=== PATIENT | male | born 1955 | race Caucasian/White ===

== ENCOUNTER 2021-06-24 00:44 | Inpatient (IN) | payer BC ==
[2021-06-24 01:33] LABS: Absolute Lymphocytes (CBC) 1.8 K/uL (0.7-4.9); Basophils % 0.9 % (0-1.3); Hematocrit 44.3 % (39.6-49.0); Lymphocytes % 40.1 % (15.3-44.8); MPV 7.8 fL (7.6-11.3); RBC Red Blood Cell Count 4.75 M/uL (4.33-5.43)
[2021-06-24 01:35] LABS: Protime INR 1.01
[2021-06-24] MEDS ORDERED: HYDRALAZINE HCL 20 MG/ML VIAL ONE (01:48)
--- NOTE | 2021-06-24 01:51 | ER ---
Nurse's Notes [facility] Name: Mahesh Saenz Age: 66 yrs Sex: Male : 1955 Arrival Date: 06/24/2021 Time: 00:49 Bed 6 Private MD: Diagnosis: NSTEMI Presentation: 06/24 00:56 Chief complaint: Patient states: chest pain that started at 7 pm, BP 202/127 at home, em denies N/V or shortness of breath, had a stent placed 20 years ago. Coronavirus screen: Vaccine status: Patient reports receiving the 2nd dose of the covid vaccine. Ebola Screen: Patient negative for fever greater than or equal to 101.5 degrees Fahrenheit, and additional compatible Ebola Virus Disease symptoms Patient denies exposure to infectious person. Patient denies travel to an Ebola-affected area in the 21 days before illness onset. No symptoms or risks identified at this time. Initial Sepsis Screen: Does the patient meet any 2 criteria? No. Patient's initial sepsis screen is negative. Does the patient have a suspected source of infection? No. Patient's initial sepsis screen is negative. Risk Assessment: Do you want to hurt yourself or someone else? Patient reports no desire to harm self or others. Onset of symptoms was June 24, 2021. 00:56 Method Of Arrival: Ambulatory em 00:56 Acuity: RANDALL 2 em Triage Assessment: 01:10 General: Appears in no apparent distress. well groomed, well developed, well nourished. ea 01:10 General: Behavior is calm, cooperative. ea Historical: - Allergies: 00:58 No Known Allergies; em - PMHx: 00:58 Anxiety; Hypertensive disorder; em - PSHx: 00:58 heart stent; back sx; em - Immunization history:: Adult Immunizations up to date. - Social history:: Smoking status: Patient denies any tobacco usage or history of. Screenin:10 Nutritional screening: No deficits noted. ea 01:10 Tuberculosis screening: No symptoms or risk factors identified. Never had TB. Possible ea symptoms: None Risk factors: None. 01:10 Abuse screen: Denies threats or abuse. ea 01:47 Fall Risk None identified. No fall in past 12 months (0 pts). No secondary diagnosis (0 ea pts). No IV (0 pts). Ambulatory Aid- None/Bed Rest/Nurse Assist (0 pts). Gait- Normal/Bed Rest/Wheelchair (0 pts) Mental Status- Oriented to own ability (0 pts). Total Cardenas Fall Scale indicates No Risk (0-24 pts). Assessment: 01:11 Pain: Pain does not radiate. ea 01:15 Respiratory: No deficits noted. ea 01:50 Cardiovascular: Reports chest pain, Chest pain is described as vague, mild, Pain is 1 ea out of 10 on a pain scale. began 1 day ago. 02:27 Reassessment: Patient and/or family updated on plan of care and expected duration. Pain em level reassessed. Patient is alert, oriented x 3, equal unlabored respirations, skin warm/dry/pink. Provider updated pt on plan of care. Vital Signs: 00:56 BP 206 / 117; Pulse 94; Resp 18; Temp 97.7; Pulse Ox 100% on R/A; Weight 81.65 kg; em Height 5 ft. 10 in. (177.80 cm); 01:11 BP 208 / 113; Pulse 83; Pulse Ox 99% ; ch4 01:25 BP 208 / 113; Pulse 86; Resp 17; Pulse Ox 100% on R/A; ea 01:30 BP 188 / 101; Pulse 83; Pulse Ox 99% ; ch4 01:38 BP 173 / 94; Pulse 84; Resp 18; Pulse Ox 100% on R/A; ch4 02:28 BP 161 / 85; Pulse 86; Resp 17; Pulse Ox 98% ; em 00:56 Body Mass Index 25.83 (81.65 kg, 177.80 cm) em ED Course: 00:49 Patient arrived in ED. cf2 00:57 Triage completed. em 00:58 Arm band placed on. em 01:08 EKG done, by ED staff, reviewed by Leighton Preciado MD. em 01:10 [facility]me[facility]C [facility]. kb 01:10 Leighton Preciado MD is Attending Physician. kb 01:10 hospital monitor on. Pulse ox on. NIBP on. ea 01:10 Patient has correct armband on for positive identification. Placed in gown. Bed in low ea position. Call light in reach. Side rails up X 1. Adult w/ patient. 01:15 Patient maintains SpO2 saturation greater than 95% on room air. ea 01:20 XRAY Chest (1 view) In Process Unspecified. EDMS 01:29 Hina Campbell, RN is Primary Nurse. ch4 01:31 Tamara Sylvester, MICHELLE is Primary Nurse. ea 01:31 Inserted saline lock: 20 gauge in right antecubital area, using aseptic technique. ea Blood collected. 01:49 Yousif Gomez MD is Hospitalizing Provider. kb 01:56 Notified Nurse Practitioner and/or Physician Power Generation Equipment Repairer of a critical lab result(s), bb troponin of 10.2 Yasmeen Akhtar NP notified. 02:21 Yousif Gomez MD is Hospitalizing Provider. kb 02:27 No provider procedures requiring assistance completed. Patient admitted, IV remains in em place. Administered Medications: 01:39 Drug: hydrALAZINE 10 mg Route: IVP; Site: right antecubital; ch4 02:28 Follow up: Response: No adverse reaction em 01:39 Drug: Aspirin Chewable Tablet 324 mg Route: PO; ch4 02:28 Follow up: Response: No adverse reaction em 02:00 CANCELLED (Patient Refused): morphine 4 mg IVP once; RASS on ADMIN: Combtv4, Very kb Agttd3, Agttd2, Rstlss1, AlertClm0, Drwsy-1, Lt Sdtn-2, Mod Sdtn-3, Dp Sdtn-4, UnArsble-5 02:21 Drug: Zofran (Ondansetron) 4 mg Route: IVP; Site: right antecubital; ea 02:41 Follow up: Response: No adverse reaction ea 02:22 Drug: fentaNYL (PF) 25 mcg Route: IVP; Site: right antecubital; ea 02:41 Follow up: Response: No adverse reaction ea 02:26 Not Given (Physician Discretion): Heparin (GA-Bolus No thrombolytic) - HEParin 60 kb units/kg IVP once; Max 5000 units 02:26 Not Given (Physician Discretion): Heparin (GA Drip) 12 units/kg/hr - (HEParin 45384 kb units, D5W 500 ml) IV at calculated rate Per protocol; Max initial rate 1000 units/hr 02:41 Drug: Lovenox (enoxaparin) 1 mg/kg Route: Sub-Q; Site: left lower abdomen; ea 03:30 Drug: Atorvastatin 40 mg Route: PO; ch4 Outcome: 01:48 Condition: good ea 01:50 Decision to Hospitalize by Provider. kb 02:22 Decision to Hospitalize by Provider. kb 02:27 Admitted to ER Hold. Please see [facility] for further documentation. em 02:27 Instructed on the need for admit, Demonstrated understanding of instructions. 17:11 Patient left the ED. iw Signatures: Dispatcher [employer] Yasmeen Ramos, SCALER-C SCALER-Albaro Robertson, RN RN em Raegan Murphy, RN RN bb Nikki Thomas, MICHELLE RN iw Tamara Sylvester RN RN ea Frazier, Celesta 2 Hina Campbell RN RN ch4
--- NOTE | 2021-06-24 01:51 | EDPHYS ---
Physician Documentation [facility] Name: Mahesh Saenz Age: 66 yrs Sex: Male : 1955 Arrival Date: 06/24/2021 Time: 00:49 Bed 6 Private MD: ED Physician Leighton Preciado HPI: 06/24 01:38 This 66 yrs old Male presents to ER via Ambulatory with complaints of Chest kb Pain > 30 y/o, High Blood Pressure. 01:38 The patient or guardian reports chest pain that is located primarily in the substernal kb area. Onset: at 19:00. The pain does not radiate. Associated signs and symptoms: The patient has no apparent associated signs or symptoms. The chest pain is described as a pressure. Duration: The patient or guardian reports a single episode. Modifying factors: The symptoms are alleviated by nothing. the symptoms are aggravated by nothing. Severity of pain: At its worst the pain was moderate in the emergency department the pain is unchanged. The patient has experienced a previous episode, symptoms similar to pain that he had 20 years ago when he had a DE. The patient has not recently seen a physician. Pt reports chest pain that started at 1900. States it felt like someone sat on his chest. Pain was intense from [id number] and then got a little better, but is still constant. Historical: - Allergies: 00:58 No Known Allergies; em - PMHx: 00:58 Anxiety; Hypertensive disorder; em - PSHx: 00:58 heart stent; back sx; em - Immunization history:: Adult Immunizations up to date. - Social history:: Smoking status: Patient denies any tobacco usage or history of. ROS: 01:30 Constitutional: Negative for fever, chills, and weight loss. kb 01:30 Cardiovascular: Positive for chest pain, Negative for edema, orthopnea, palpitations, paroxysmal nocturnal dyspnea. 01:30 All other systems are negative. Exam: 01:30 Constitutional: This is a well developed, well nourished patient who is awake, alert, kb and in no acute distress. Head/Face: Normocephalic, atraumatic. ENT: Moist Mucous membranes Cardiovascular: Regular rate and rhythm with a normal S1 and S2. No gallops, murmurs, or rubs. No pulse deficits. Respiratory: Respirations even and unlabored. No increased work of breathing, no retractions or nasal flaring. Skin: Warm, dry with normal turgor. Normal color. MS/ Extremity: Pulses equal, no cyanosis. Neurovascular intact. Full, normal range of motion. Neuro: Awake and alert, GCS 15, oriented to person, place, time, and situation. Moves all extremities. Normal gait. Psych: Awake, alert, with orientation to person, place and time. Behavior, mood, and affect are within normal limits. 01:42 ECG was reviewed by the Attending Physician. kb Vital Signs: 00:56 BP 206 / 117; Pulse 94; Resp 18; Temp 97.7; Pulse Ox 100% on R/A; Weight 81.65 kg; em Height 5 ft. 10 in. (177.80 cm); 01:11 BP 208 / 113; Pulse 83; Pulse Ox 99% ; ch4 01:25 BP 208 / 113; Pulse 86; Resp 17; Pulse Ox 100% on R/A; ea 01:30 BP 188 / 101; Pulse 83; Pulse Ox 99% ; ch4 01:38 BP 173 / 94; Pulse 84; Resp 18; Pulse Ox 100% on R/A; ch4 02:28 BP 161 / 85; Pulse 86; Resp 17; Pulse Ox 98% ; em 00:56 Body Mass Index 25.83 (81.65 kg, 177.80 cm) em MDM: 01:10 Patient medically screened. kb 01:20 Data reviewed: vital signs, nurses notes. Data interpreted: Pulse oximetry: on room air kb is 100 %. Interpretation: normal. Counseling: I had a detailed discussion with the patient and/or guardian regarding: the historical points, exam findings, and any diagnostic results supporting the discharge/admit diagnosis, the need for further work-up and treatment in the hospital. Physician consultation: Gray BARRON was called at 01:20, regarding admission, to the telemetry unit. patient's condition, and will see patient in ED. 01:29 The patient was given aspirin in the Emergency Department. kb 01:58 Physician consultation: Giovanny Cruz MD paged now. kb 02:19 Physician consultation: Giovanny Cruz MD was contacted at 02:20, regarding consult, kb patient's condition, and will see patient in inpatient room, wants lovenox instead of heparin and admit to our pharmacology. 06/24 00:59 Order name: Basic Metabolic Panel; Complete Time: 01:56 kb 06/24 00:59 Order name: CBC with Diff; Complete Time: 01:38 kb 06/24 00:59 Order name: LFT's; Complete Time: 01:56 kb 06/24 00:59 Order name: Magnesium; Complete Time: 01:56 kb 06/24 00:59 Order name: NT PRO-BNP; Complete Time: 01:56 kb 06/24 00:59 Order name: PT-INR; Complete Time: 01:38 kb 06/24 00:59 Order name: Troponin (emerg Dept Use Only); Complete Time: 01:56 kb 06/24 01:22 Order name: COVID-19 : Document "Date of Symptom Onset" if Symptomatic. kb 06/24 03:14 Order name: SARS-COV-2 RT PCR; Complete Time: 15:00 EDMS 06/24 08:12 Order name: Troponin I; Complete Time: 15:00 EDMS 06/24 08:12 Order name: Lipid Profile; Complete Time: 15:00 EDMS 06/24 08:12 Order name: T4 Free; Complete Time: 15:00 EDMS 06/24 08:12 Order name: Thyroid Stimulating Hormone; Complete Time: 15:00 EDMS 06/24 00:59 Order name: XRAY Chest (1 view); Complete Time: 15:00 kb 06/24 00:59 Order name: EKG; Complete Time: 01:00 kb 06/24 00:59 Order name: Cardiac monitoring; Complete Time: 02:27 kb 06/24 00:59 Order name: EKG - Nurse/Tech; Complete Time: 01:08 kb 06/24 00:59 Order name: IV Saline Lock; Complete Time: 02:27 kb 06/24 00:59 Order name: Labs collected and sent; Complete Time: 02:27 kb 06/24 13:31 Order name: Troponin I; Complete Time: 15:00 EDMS 06/24 00:59 Order name: O2 Per Protocol; Complete Time: 02:27 kb 06/24 00:59 Order name: O2 Sat Monitoring; Complete Time: 02:27 kb 06/24 01:50 Order name: Vital Signs; Complete Time: 02:27 kb EC:42 Rate is 85 beats/min. Rhythm is regular. QRS [place] is Normal. [place] interval is normal at kb 142 msec. QRS interval is normal at 100 msec. QT interval is normal at 388 msec. Administered Medications: 01:39 Drug: hydrALAZINE 10 mg Route: IVP; Site: right antecubital; ch4 02:28 Follow up: Response: No adverse reaction em 01:39 Drug: Aspirin Chewable Tablet 324 mg Route: PO; ch4 02:28 Follow up: Response: No adverse reaction em 02:00 CANCELLED (Patient Refused): morphine 4 mg IVP once; RASS on ADMIN: Combtv4, Very kb Agttd3, Agttd2, Rstlss1, AlertClm0, Drwsy-1, Lt Sdtn-2, Mod Sdtn-3, Dp Sdtn-4, UnArsble-5 02:21 Drug: Zofran (Ondansetron) 4 mg Route: IVP; Site: right antecubital; ea 02:41 Follow up: Response: No adverse reaction ea 02:22 Drug: fentaNYL (PF) 25 mcg Route: IVP; Site: right antecubital; ea 02:41 Follow up: Response: No adverse reaction ea 02:26 Not Given (Physician Discretion): Heparin (DE-Bolus No thrombolytic) - HEParin 60 kb units/kg IVP once; Max 5000 units 02:26 Not Given (Physician Discretion): Heparin ([place] Drip) 12 units/kg/hr - (HEParin 07691 kb units, D5W 500 ml) IV at calculated rate Per protocol; Max initial rate 1000 units/hr 02:41 Drug: Lovenox (enoxaparin) 1 mg/kg Route: Sub-Q; Site: left lower abdomen; ea 03:30 Drug: Atorvastatin 40 mg Route: PO; ch4 Disposition: 20:07 Co-signature as Attending Physician, Leighton Preciado MD. [email or web address] Disposition Summary: 06/24/21 02:22 Hospitalization Ordered Hospitalization Status: Inpatient Admission(06/24/21 02:22) kb Provider: Yousif Gomez(06/24/21 02:22) kb Condition: Stable(06/24/21 02:22) kb Problem: new(06/24/21 02:22) kb Bed/Room Type: Standard(06/24/21 02:22) kb Symptoms: are unchanged(06/24/21 02:22) kb Location: Telemetry/MedSurg (Inpatient)(06/24/21 16:30) eb Room Assignment: 218(06/24/21 16:30) eb Diagnosis - NSTEMI kb Forms: - Medication Reconciliation Form kb - SBAR form kb Signatures: Dispatcher [employer] EDWA Yasmeen Akhtar, DIGITAL ANALYTICS MANAGER-C DIGITAL ANALYTICS MANAGER-Ckb Albaro Hammond, RN RN em Gray Sanches FNP-C FNP-Cla1 Marielos Engle RN RN cg Antunez, Elena, RN RN ea Botello, Elizabeth eb Holmes, Maurice, MD MD [facility] Hina Campbell RN RN ch4 Corrections: (The following items were deleted from the chart) 02:00 01:53 morphine 4 mg IVP once; RASS on ADMIN: Combtv4, Very Agttd3, Agttd2, Rstlss1, kb AlertClm0, Drwsy-1, Lt Sdtn-2, Mod Sdtn-3, Dp Sdtn-4, UnArsble-5 ordered. kb 02:02 01:50 Observation kb kb 02:02 01:50 Yousif Gomez kb kb 02:02 01:50 Telemetry/MedSurg (observation) kb kb 02:02 01:50 Stable kb kb 02:02 01:50 new kb kb 02:02 01:50 are unchanged kb kb 02:02 01:50 Standard kb kb 02:02 01:50 kb kb 02:02 01:50 Chest pain, unspecified kb kb 02:21 02:12 Counseling: I had a detailed discussion with the patient and/or guardian kb regarding: the historical points, exam findings, and any diagnostic results supporting the discharge/admit diagnosis, lab results, radiology results, the need to transfer to another facility, kb 02:21 02:02 ED course: Transfer initiated to [facility]. kb kb 02:22 01:22 CORONAVIRUS ordered. EDWA EDMS 02:22 02:22 have improved kb kb 02:32 02:22 Telemetry/MedSurg (Inpatient) kb cg 02:32 02:22 kb cg 16:30 02:32 [facility] ER HOLD cg eb 16:30 02:32 ERHOLD- cg eb
[2021-06-24 01:53] LABS: Albumin 3.9 g/dL (3.4-5.0); Bilirubin Direct 0.2 mg/dL (0-0.2); Bilirubin Total 0.5 mg/dL (0.2-1.0); Magnesium 2.1 mg/dL (1.8-2.4); Potassium 3.7 mmol/L (3.5-5.1); Protein, Total 7.5 g/dL (6.4-8.2)
[2021-06-24] MEDS ORDERED: ASPIRIN 81 MG CHEWABLE TABLET ONE ×2 (01:53→08:16)
[2021-06-24 01:55] LABS: Troponin (Emerg Dept Use Only) 10.2 ng/mL (0.0-0.045)
[2021-06-24] MEDS ORDERED: HEPARIN 5000 UNIT/ML 1 ML VIAL ONE (02:39)
[2021-06-24] MEDS ORDERED: FENTANYL CITR 100 MCG/2 ML ONE (02:39)
[2021-06-24] MEDS ORDERED: ONDANSETRON 4 MG/2 ML VIAL ONE (02:39)
[2021-06-24] MEDS ORDERED: HEPARIN/D5W 0 UNIT/0 ML BAG IV ONE (02:40)
[2021-06-24] MEDS ORDERED: ENOXAPARIN 80 MG/0.8 ML SQ ONE ×2 (03:02→17:07)
--- NOTE | 2021-06-24 03:24 | P.HP ---
Certification for Inpatient Patient admitted to: Inpatient With expected LOS: >2 Midnights Patient will require the following post-hospital care: None Practitioner: I am a practitioner with admitting privileges, knowledge of patient current condition, hospital course, and medical plan of care. Services: Services provided to patient in accordance with Admission requirements found in Title 42 Section 412.3 of the Code of Federal Regulations <Gray Sanches Gurinder Denton - Last Filed: 06/24/21 03:20> Patient History Date of Service: 06/24/21 Reason for admission: NSTEMI History of Present Illness: 66-year-old male with history of hypertension, CAD, anxiety presents emerge department for chest pain. Patient reports that he was playing poker with his friends this evening around 7 PM when he got sudden onset of 8 out of 10 substernal pressure-like chest pain pain persisted and patient was hypertensive so he came to the emergency department patient was evaluated the emerge department initially was hypertensive with blood pressure 200 systolic labs were significant for creatinine 1.35 GFR 53 BUN 23 AST 89 troponin 10.2 BNP [address] elevation. Cardiology was contacted while patient was in the emergency department cardiology recommended admission, Lovenox, statin, beta- ricardo, aspirin therapy. Patient chest pain has significant proved at this time rated 2 out of 10 will admit for further evaluation and management of NSTEMI. - Past Medical/Surgical History -: Hypertension -: CAD -: Anxiety -: Back surgery, neck surgery Psychosocial/ Personal History: Lives at home with family - Family History Mother -: Hypertension Father -: Hypertension, Diabetes - Social History Smoking Status: Never smoker Alcohol use: Yes CD- Drugs: No Caffeine use: Yes Place of Residence: Home <Gray Sanches - Last Filed: 06/24/21 03:20> Date of Service: 06/24/21 <Yousif Gomez - Last Filed: 06/24/21 15:50> Review of Systems 10-point ROS is otherwise unremarkable Cardiovascular: Chest Pain <Gray Sanches - Last Filed: 06/24/21 03:20> Physical Examination - Physical Exam General: Alert, In no apparent distress, Oriented x3 HEENT: Atraumatic, PERRLA, Mucous membr. moist/pink, EOMI, Sclerae nonicteric Neck: Supple, 2+ carotid pulse no bruit, No LAD, Without JVD or thyroid abnormal ity Respiratory: Clear to auscultation bilaterally, Normal air movement Cardiovascular: Regular rate/rhythm, Normal S1 S2 Gastrointestinal: Normal bowel sounds, No tenderness Musculoskeletal: No tenderness Integumentary: No rashes Neurological: Normal gait, Normal speech, Normal strength at 5/5 x4 extr, Normal tone, Normal affect Lymphatics: No axilla or inguinal lymphadenopathy - Studies Laboratory Data (last 24 hrs) 06/24/21 01:23: PT 11.6, INR 1.01 06/24/21 01:23: WBC 4.60, Hgb 15.1, Hct 44.3, Plt Count 263 06/24/21 01:23: Sodium 140, Potassium 3.7, BUN 23 H, Creatinine 1.35 H, Glucose 106, Magnesium 2.1, Total Bilirubin 0.5, AST 89 H, ALT 21, Alkaline Phosphatase 98 <Gray Sanches - Last Filed: 06/24/21 03:20> - Studies Laboratory Data (last 24 hrs) 06/24/21 01:23: PT 11.6, INR 1.01 06/24/21 01:23: WBC 4.60, Hgb 15.1, Hct 44.3, Plt Count 263 06/24/21 01:23: Sodium 140, Potassium 3.7, BUN 23 H, Creatinine 1.35 H, Glucose 106, Magnesium 2.1, Total Bilirubin 0.5, AST 89 H, ALT 21, Alkaline Phosphatase 98 <Yousif Gomez - Last Filed: 06/24/21 15:50> Assessment and Plan - Plan Assessment: NSTEMI history of CAD Hypertension Renal insufficiency Plan: NSTEMI history of CAD: Cardiology consulted, case was discussed. Full dose Lovenox, aspirin, statin, beta-ricardo therapy, as needed morphine/nitro. Trend troponins, monitor on telemetry, anticipate heart catheterization Saturday. Repeat EKG as necessary. Hypertension: Obtain and continue medications, initiated on beta-ricardo therapy. Renal insufficiency: We will provide IV fluids. Recheck with daily labs, consult nephrology as necessary. DVT PPX: Full dose Lovenox Code status: Full code Discharge Plan: Home Plan to discharge in: Greater than 2 days - Advance Directives Does patient have a Living Will: No Does patient have a Durable POA for Healthcare: No - Code Status/Comfort Care Code Status Assessed: Yes (Full code) Critical Care: No Time Spent Managing Pts Care (In Minutes): 55 <Gray Sanches - Last Filed: 06/24/21 03:20> - Plan Patient seen and examined this morning on rounds Agree with plan of care as noted above Patient reported another brief episode of chest pain/pressure, but less severe and only brief overnight Troponin continuing to increase EKG repeated this morning, incomplete RBBB, no ST elevation Cardiology consulted, discussed significantly elevated troponins, patient appears comfortable, continue aspirin, statin, beta-ricardo, Lovenox Plan for cardiac catheterization on Saturday Continue IV fluids through today, repeat labs in a.m. <Yousif Gomez - Last Filed: 06/24/21 15:50>
[2021-06-24] MEDS ORDERED: ATORVASTATIN 20 MG TAB ONE (03:56)
[2021-06-24 05:12] VITALS: BMI 31.8
[2021-06-24] MEDS ORDERED: ONDANSETRON 4 MG/2 ML VIAL IV PRN (05:52)
[2021-06-24] MEDS ORDERED: NITROGLYCERIN 0.4 MG/TAB SL PRN (05:52)
[2021-06-24] MEDS ORDERED: MORPHINE 2 MG/ML SYR IV PRN (05:52)
[2021-06-24] MEDS ORDERED: METOPROLOL TAR 25 MG TAB PO SCH (06:00)
[2021-06-24] MEDS ORDERED: METOPROLOL TAR 25 MG TAB ONE (07:36)
[2021-06-24 08:01] LABS: Thyroid Stimulating Hormone 1.32 uIU/mL (0.360-3.740)
[2021-06-24 08:12] LABS: Troponin I 79.4 ng/mL (0.0-0.045)
--- NOTE | 2021-06-24 09:22 | RAD REPORT ---
EXAM DESCRIPTION: RAD - Chest Single View - 06/24/2021 1:21 am CLINICAL HISTORY: CHEST PAIN COMPARISON: March 16 two view exam TECHNIQUE: AP portable chest image was obtained 06/24/2021 1:21 am . FINDINGS: Lungs are clear. Interstitial pattern matches comparison. Heart and vasculature are normal . No measurable pleural effusion and no pneumothorax. No acute bony abnormality seen. No acute aortic findings suspected. IMPRESSION: No acute cardiopulmonary process.
[2021-06-24] MEDS: ASPIRIN EC 81 MG TAB PO SCH (09:24)
[2021-06-24] MEDS: NA CHLORIDE 0.9% 1,000 ML IV SCH ×2 (10:09→17:37)
[2021-06-24] MEDS ORDERED: NA CHLORIDE 0.9% 1,000 ML ONE (10:30)
[2021-06-24] MEDS: ENOXAPARIN 80 MG/0.8 ML SQ SCH (16:00)
[2021-06-24] MEDS: METOPROLOL TAR 50 MG TAB PO SCH (17:37)
[2021-06-24] MEDS: ATORVASTATIN 40 MG TAB PO SCH (21:16)
[2021-06-24] MEDS: HYDRALAZINE HCL 20 MG/ML VIAL IV PRN (21:17)
[2021-06-24] MEDS ORDERED: NITROGLYCERIN 1 GM PKT TD ONE (22:25)
[2021-06-24 23:19] LABS: Urine Appearance CLEAR (Clear); Urine Bilirubin NEGATIVE (Negative); Urine Blood NEGATIVE (Negative); Urine Color YELLOW (Yellow); Urine Glucose NEGATIVE (Negative); Urine Protein NEGATIVE (Negative); Urine Specific Gravity <=1.005 (1.005-1.030); Urine Urobilinogen 0.2 mg/dL (0.2-1.0)
[2021-06-24 23:24] LABS: Urine Microscopic Reflex NO UMIC
[2021-06-25] MEDS: NA CHLORIDE 0.9% 1,000 ML IV SCH (03:35)
[2021-06-25] MEDS: ENOXAPARIN 80 MG/0.8 ML SQ SCH ×2 (04:58→17:03)
[2021-06-25] MEDS: METOPROLOL TAR 50 MG TAB PO SCH ×2 (05:12→17:03)
[2021-06-25 06:05] LABS: Absolute Lymphocytes (CBC) 1.5 K/uL (0.7-4.9); Basophils % 0.6 % (0-1.3); Lymphocytes % 36.7 % (15.3-44.8); MPV 8.6 fL (7.6-11.3); RBC Red Blood Cell Count 4.36 M/uL (4.33-5.43)
--- NOTE | 2021-06-25 06:07 | P.PN ---
Subjective Date of Service: 06/25/21 Chief Complaint: NSTEMI Subjective: Improving (Overnight panic attack when he was told trop level. He did some Internet searching that increased his anxiety. He requested to be transferred to tertiary care center overnight. This was initiated and there were no beds available. He was more calm in the morning and decided against transfer) Review of Systems 10-point ROS is otherwise unremarkable Physical Examination - Vital Signs Temperature: 98.1 F Blood Pressure: 144/69 Pulse: 83 Respirations: 16 Pulse Ox (%): 97 Assessment & Plan Physician Review Additional Text: Physical Exam General: Alert, In no apparent distress, Oriented x3 HEENT: Normal conjunctiva, sclera anicteric Respiratory: Clear to auscultation bilaterally, Normal air movement Cardiovascular: Regular rate/rhythm, Normal S1 S2 Gastrointestinal: Soft, nontender, nondistended Integumentary: No rashes Neurological: Normal speech, normal affect, moving all 4 extremities equally/bilaterally Problem list NSTEMI, history of CAD s/p stent Hypertension Renal insufficiency Troponins continue to rise, peaking over 100, down to 20 this morning Patient is now more calm, he was noted to be hypertensive when he was more anxious, and this is improved as well. Increased dose of metoprolol Continue aspirin, beta-ricardo, statin, Lovenox Cardiology consulted, plan to take patient for cardiac catheterization tomorrow morning Patient has history of coronary artery disease, underwent stent placement over a decade ago. Patient states he has not been taking any antiplatelet/ anticoagulation medication in over a decade Acute renal insufficiency, suspect prerenal/hypovolemia. Improved with IV fluids, DC IV fluids today DVT PPX: Full dose Lovenox Code status: Full code Dispo: Anticipate DC home in 1-2 days. Cardiac cath tomorrow Time Spent Managing Pts Care (In Minutes): 45
[2021-06-25 06:24] LABS: Albumin 3.2 g/dL (3.4-5.0); Bilirubin Total 0.9 mg/dL (0.2-1.0); Magnesium 1.9 mg/dL (1.8-2.4); Potassium 3.9 mmol/L (3.5-5.1); Protein, Total 6.5 g/dL (6.4-8.2)
[2021-06-25 06:26] LABS: Troponin I 20.2 ng/mL (0.0-0.045)
[2021-06-25] MEDS ORDERED: POTASSIUM CL SA 10 MEQ TAB PO ONE (09:00)
[2021-06-25] MEDS: ASPIRIN EC 81 MG TAB PO SCH (09:03)
[2021-06-25] MEDS: ATORVASTATIN 40 MG TAB PO SCH (20:37)
[2021-06-25] MEDS: HYDRALAZINE HCL 20 MG/ML VIAL IV PRN (20:44)
[2021-06-26] MEDS: ENOXAPARIN 80 MG/0.8 ML SQ SCH (03:47)
[2021-06-26] MEDS: ASPIRIN EC 81 MG TAB PO SCH (05:26)
[2021-06-26] MEDS: METOPROLOL TAR 50 MG TAB PO SCH ×2 (05:26→17:40)
[2021-06-26 05:40] LABS: Absolute Lymphocytes (CBC) 1.5 K/uL (0.7-4.9); Basophils % 0.7 % (0-1.3); Hematocrit 43.1 % (39.6-49.0); Lymphocytes % 40.6 % (15.3-44.8); MPV 8.6 fL (7.6-11.3); RBC Red Blood Cell Count 4.58 M/uL (4.33-5.43)
[2021-06-26 06:01] LABS: Albumin 3.3 g/dL (3.4-5.0); Bilirubin Total 0.7 mg/dL (0.2-1.0); Magnesium 1.9 mg/dL (1.8-2.4); Potassium 3.9 mmol/L (3.5-5.1); Protein, Total 6.9 g/dL (6.4-8.2)
[2021-06-26] MEDS ORDERED: POTASSIUM CL SA 10 MEQ TAB PO ONE (09:00)
[2021-06-26] MEDS ORDERED: MIDAZOLAM HCL 2 MG/2 ML INJ ONE ×2 (09:12→09:25)
[2021-06-26] MEDS ORDERED: HEPA 1000U/500MLS 1,000 UNIT/500 ML BAG IV ONE (09:12)
[2021-06-26] MEDS ORDERED: ATROPINE SULF 1 MG/10 ML SYR IV ONE (09:13)
[2021-06-26] MEDS ORDERED: FENTANYL CITR 100 MCG/2 ML ONE (09:13)
[2021-06-26] MEDS ORDERED: NA CHLORIDE 0.9% 0 ML ONE (09:13)
[2021-06-26] MEDS ORDERED: NA CHLORIDE 0.9% 500 ML ONE (09:35)
--- NOTE | 2021-06-26 09:43 | OP ---
Date of Procedure: 06/26/2021 Surgeon: Giovanny Cruz MD Position Clerk: Mr. Shaen Stephens. Procedures: Left heart catheterization, selective coronary arteriogram. Indication: Non-STEMI. Procedure In Detail: The patient was brought to the denture laboratory technician on 06/26/2021 for left heart catheteriz ation, selective coronary arteriogram, prepped and draped in the routine sterile fashion. Given Vers ed and fentanyl for sedation. A 6-Bel[place] sheath introduced in the right common femoral artery succes sfully. Star[employer] was used to close the case. Angiography in the groin was normal. Ruthie cathete r left and right were used to do the diagnostic catheterization. The left main was normal. The RCA was normal and dominant. He had a 99% to 100% occlusion of proximal circumflex after an old stent wi th JULIO 1 flow. He had a bifurcating dual LAD system with 80% stenosis at both ostia and about a 70% to 80% stenosis in the mid LAD, at one of the bifurcation. I felt more comfortable with him to go [facility] for review of his film and having a possible CABG. Postoperative Diagnosis: Severe coronary artery disease. Plan: For possible CABG. Complications: No complications. Blood Loss: 5 mL. Anesthesia: Total conscious sedation was 30 minutes. NB/MODL Voice ID: [id number] Report ID: [id number]
--- NOTE | 2021-06-26 11:13 | PN ---
Date of Progress Note: 06/25/2021 Mr. Saenz had come in with non-STEMI, nonspecific ST changes, no acute ST elevation, elevated tropon in, most likely a circumflex stenosis based on the EKG and a history he has had a circumflex stent in the past. Overnight, he was on Lovenox, aspirin, beta-blockers, and statin. He is completely asymp tomatic. EKG is stable. Telemetry is stable. We will plan a heart catheterization on 06/26/2021 to define his coronary anatomy. He understands the risk and the benefits of the procedure and he agree s to proceed. SARA/OBDULIA Voice ID: [id number] Report ID: [id number]
[2021-06-26] MEDS: HYDRALAZINE HCL 20 MG/ML VIAL IV PRN ×2 (12:28→20:18)
--- NOTE | 2021-06-26 14:53 | ECHO ---
HEIGHT: 5 ft 3 in WEIGHT: 179 lb 14.355 oz DATE OF STUDY: 06/26/[address]: Gray Sanches NP 2-DIMENSIONAL: YES M.MODE: YES DOPPLER: YES COLOR FLOW: YES TDS: NO PORTABLE: NO DEFINITY: NO BUBBLE STUDY: NO DIAGNOSIS: NSTEMI CARDIAC HISTORY: CATHERIZATION: SURGERY: PROSTHETIC VALVE: PACEMAKER: MEASUREMENTS (cm) DIASTOLIC (NORMALS) SYSTOLIC (NORMALS) IVSd 1.2 (0.6-1.2) LA Diam 3.8 (1.9-4.0) LVEF 57% LVIDd 5.0 (3.5-5.7) LVIDs 3.5 (2.0-3.5) %FS 30% LVPWd 1.2 (0.6-1.2) Ao Diam 3.2 (2.0-3.7) 2 DIMENSIONAL ASSESSMENT: RIGHT ATRIUM: NORMAL LEFT ATRIUM: NORMAL RIGHT VENTRICLE: NORMAL LEFT VENTRICLE: NORMAL TRICUSPID VALVE: NORMAL MITRAL VALVE: NORMAL PULMONIC VALVE: NORMAL AORTIC VALVE: NORMAL PERICARDIAL EFFUSION: NONE AORTIC ROOT: NORMAL LEFT VENTRICULAR WALL MOTION: NORMAL DOPPLER/COLOR FLOW: NORMAL COMMENTS: NORMAL LEFT VENTRICULAR EJECTION FRACTION 55-60%. NORMAL WALL MOTION. TECHNOLOGIST: Alexey KEBEDE
--- NOTE | 2021-06-26 17:56 | P.PN ---
Subjective Date of Service: 06/26/21 Chief Complaint: NSTEMI Subjective: Other (Patient for cardiac cath today, no further chest pain) Review of Systems 10-point ROS is otherwise unremarkable Physical Examination - Vital Signs Temperature: 97.7 F Blood Pressure: 157/77 Pulse: 94 Respirations: 18 Pulse Ox (%): 99 Assessment & Plan Physician Review Additional Text: Physical Exam General: Alert, In no apparent distress, Oriented x3 HEENT: Normal conjunctiva, sclera anicteric Respiratory: Clear to auscultation bilaterally, Normal air movement Cardiovascular: Regular rate/rhythm, Normal S1 S2 Gastrointestinal: Soft, nontender, nondistended Integumentary: No rashes Neurological: Normal speech, normal affect Problem list NSTEMI, history of CAD s/p stent Hypertension Renal insufficiency Troponins continue to rise, peaking over 100, down to 20 yesterday Patient is now more calm, he was noted to be hypertensive when he was more anxious, and this is improved as well. Increased dose of metoprolol Continue aspirin, beta-ricardo, statin, Lovenox Cardiology consulted, plan to take patient for cardiac catheterization today Patient has history of coronary artery disease, underwent stent placement over a decade ago. Patient states he has not been taking any antiplatelet/anticoagulation medication in over a decade Acute renal insufficiency, suspect prerenal/hypovolemia. Improved with IV fluids, DC IV fluids 06/25 DVT PPX: Full dose Lovenox Code status: Full code Dispo: Anticipate DC home in 24 hours, possible transfer, pending cath results Time Spent Managing Pts Care (In Minutes): 35
[2021-06-26] MEDS: ATORVASTATIN 40 MG TAB PO SCH (20:18)
[2021-06-27 04:08] LABS: Absolute Lymphocytes (CBC) 1.5 K/uL (0.7-4.9); Basophils % 0.6 % (0-1.3); Hematocrit 43.7 % (39.6-49.0); Lymphocytes % 35.9 % (15.3-44.8); MPV 7.9 fL (7.6-11.3)
[2021-06-27 04:36] LABS: Albumin 3.5 g/dL (3.4-5.0); Bilirubin Total 0.8 mg/dL (0.2-1.0); Potassium 4.2 mmol/L (3.5-5.1); Protein, Total 7.1 g/dL (6.4-8.2)
[2021-06-27 05:02] LABS: Blood Morphology Comment NOT SEEN (NOT SEEN); Platelet Estimate ADEQ
[2021-06-27] MEDS: METOPROLOL TAR 50 MG TAB PO SCH ×2 (05:55→16:57)
[2021-06-27] MEDS: ASPIRIN EC 81 MG TAB PO SCH ×2 (08:16→15:05)
--- NOTE | 2021-06-27 15:27 | P.PN ---
Subjective Date of Service: 06/27/21 Chief Complaint: NSTEMI Patient currently has no complain. Physical Examination - Vital Signs Temperature: 98.1 F Blood Pressure: 153/95 Pulse: 84 Respirations: 16 Pulse Ox (%): 99 - Physical Exam General: Alert, In no apparent distress, Oriented x3 HEENT: Mucous membr. moist/pink Neck: JVD not distended Respiratory: Clear to auscultation bilaterally, Normal air movement Cardiovascular: No edema, Regular rate/rhythm, Normal S1 S2 Gastrointestinal: Soft and benign, Non-distended Musculoskeletal: No swelling, No tenderness Integumentary: No rashes Neurological: Normal strength at 5/5 x4 extr Assessment And Plan Physician Review Additional Text: Physical Exam General: Alert, In no apparent distress, Oriented x3 HEENT: Normal conjunctiva, sclera anicteric Respiratory: Clear to auscultation bilaterally, Normal air movement Cardiovascular: Regular rate/rhythm, Normal S1 S2 Gastrointestinal: Soft, nontender, nondistended Integumentary: No rashes Neurological: Normal speech, normal affect Problem list NSTEMI, history of CAD s/p stent Hypertension Renal insufficiency Elevated troponin. Status post cardiac catheterization. Patient noted to have RCA and LAD occlusions. Cardiology-Dr. Cruz is recommending transfer for CABG. PContinue continue metoprolol and statins. All anticoagulation and antiplatelet on hold in anticipation for CABG Acute renal insufficiency, suspect prerenal/hypovolemia. Resolved with IV fluids. Code status: Full code
[2021-06-27] MEDS: HYDRALAZINE HCL 20 MG/ML VIAL IV PRN (17:00)
[2021-06-27] MEDS: ATORVASTATIN 40 MG TAB PO SCH (21:08)
[2021-06-27] MEDS: ENOXAPARIN 80 MG/0.8 ML SQ SCH (21:08)
[2021-06-28 00:17] VITALS: O2SAT 98
[2021-06-28 05:37] LABS: Absolute Lymphocytes (CBC) 1.8 K/uL (0.7-4.9); Basophils % 0.7 % (0-1.3); Hematocrit 42.9 % (39.6-49.0); MPV 8.1 fL (7.6-11.3); RBC Red Blood Cell Count 4.56 M/uL (4.33-5.43)
[2021-06-28 05:47] LABS: Potassium 4.1 mmol/L (3.5-5.1)
[2021-06-28] MEDS: METOPROLOL TAR 50 MG TAB PO SCH (06:47)
[2021-06-28] MEDS: ASPIRIN EC 81 MG TAB PO SCH ×2 (08:35→09:58)
[2021-06-28] MEDS: ENOXAPARIN 80 MG/0.8 ML SQ SCH ×2 (08:36→09:58)
[2021-06-28 09:20] VITALS: TEMP 98
[2021-06-28] MEDS: HYDRALAZINE HCL 20 MG/ML VIAL IV PRN (12:05)
[2021-06-28 12:09] VITALS: BP 173/97
--- NOTE | 2021-06-28 14:26 | P.DS ---
Admission Date: 06/24/21 Discharge Date: 06/28/21 Disposition: AMA-LEFT AGAINST MEDICAL ADVIC Discharge Condition: FAIR Reason for Admission: NSTEMI Consultations: Cardiology-Dr. Cruz - Problems (1) Non-STEMI (non-ST elevated myocardial infarction) Status: Acute (2) CAD (coronary artery disease), [place] coronary artery Status: Acute (3) Accelerated hypertension Status: Acute (4) Acute renal failure Status: Acute Brief History of Present Illness: 66-year-old male with history of hypertension, CAD, anxiety presented to the emergency department for chest pain. Patient reported that he was playing poker with his friends when he got sudden onset of 8 out of 10 substernal pressure-like chest pain pain. He was also hypertensive so he came to the emergency department. His systolic blood pressure in the ED was 200. Labs were significant for creatinine 1.35 GFR 53 BUN 23 AST 89 troponin 10.2 BNP [address] elevation. Patient admitted for management of NSTEMI. Hospital Course: Patient admitted to the medical floor and treated with full-dose Lovenox, aspirin, lipitor and beta-ricardo. He was on hydralazine IV p.r.n. for elevated blood pressure. Patient seen in consultation by cardiology-Dr. Cruz. Cardiac catheterization was performed which showed he has a 99% to 100% occlusion of proximal circumflex after an old stent with JULIO 1 flow. He has a bifurcating dual LAD system with 80% stenosis at both ostia and about a 70% to 80% stenosis in the mid LAD, at one of the bifurcation. Dr. Cruz recommended transfer to a tertiary center for CABG. Multiple tertiary centers-[facility], [facility]3], [facility], and [facility] were contacted for transfer. They were all filled to capacity and waiting for the bed to open up for transfer. Meanwhile the patient was being medically with full-dose Lovenox and aspirin and blood pressure control. Patient was concerned about the difficulty with the transfer process. He decided to sign out against medical advice today. I communicated to he and his risk of signing out against medical advice which included cardiac arrest and . He voiced understanding and stated he has plans to check in to a tertiary center in [place] immediately after he leaves. Patient signed out against medical advice and left. He was provided CD copy of his cardiac catheterization images and lab results. Vital Signs/Physical Exam: Temp Pulse Resp BP Pulse Ox 98 F 64 16 173/97 H 99 06/28/21 08:00 06/28/21 08:00 06/28/21 08:00 06/28/21 12:08 06/28/21 08:00 Laboratory Data at Discharge: WBC 4.50 K/uL (4.3-10.9) 06/28/21 05:09 Hgb 14.5 g/dL (13.6-17.9) 06/28/21 05:09 Hct 42.9 % (39.6-49.0) 06/28/21 05:09 Plt Count 245 K/uL (152-406) 06/28/21 05:09 PT 11.6 SECONDS (9.5-12.5) 06/24/21 01:23 INR 1.01 06/24/21 01:23 Sodium 140 mmol/L (136-145) 06/28/21 05:09 Potassium 4.1 mmol/L (3.5-5.1) 06/28/21 05:09 BUN 23 mg/dL (7-18) H 06/28/21 05:09 Creatinine 1.00 mg/dL (0.55-1.3) 06/28/21 05:09 Glucose 100 mg/dL (74-106) 06/28/21 05:09 Magnesium 2.0 mg/dL (1.8-2.4) 06/27/21 03:52 Total Bilirubin 0.8 mg/dL (0.2-1.0) 06/27/21 03:52 AST 45 U/L (15-37) H 06/27/21 03:52 ALT 28 U/L (12-78) 06/27/21 03:52 Alkaline Phosphatase 80 U/L (45-117) 06/27/21 03:52 Troponin I 20.20 ng/mL (0.0-0.045) H* 06/25/21 05:05 Triglycerides 126 mg/dL (<150) 06/24/21 06:52 Cholesterol 161 mg/dL (<200) 06/24/21 06:52 HDL Cholesterol 54 mg/dL (40-60) 06/24/21 06:52 Cholesterol/HDL Ratio 2.98 06/24/21 06:52 Home Medications: ALPRAZolam [Alprazolam] 1 mg PO PRN PRN 06/24/21 Esomeprazole Magnesium [Nexium] 20 mg PO DAILY 06/24/21 Gabapentin 400 mg PO DAILY 06/24/21 Aspirin [Aspirin EC] 81 mg PO DAILY #30 tablet. 06/28/21 Atorvastatin Calcium [Lipitor] 40 mg PO BEDTIME #30 tab 06/28/21 Metoprolol Tartrate [Lopressor*] 50 mg PO BID 6AM 6PM #60 tab 06/28/21 Nitroglycerin [Nitrostat*] 0.4 mg SL UD PRN #20 tab 06/28/21 New Medications: Aspirin [Aspirin EC] 81 mg PO DAILY #30 tablet. Atorvastatin Calcium [Lipitor] 40 mg PO BEDTIME #30 tab Metoprolol Tartrate [Lopressor*] 50 mg PO BID 6AM 6PM #60 tab Nitroglycerin [Nitrostat*] 0.4 mg SL UD PRN #20 tab PRN Reason: Pain Scale 2-4 (Mild) Diet: [facility] Followup: Giovanny Cruz MD [ACTIVE - CAN ADMIT] - 1 Week Jak Toure DO, DO [Primary Care Provider] -
== END 2021-06-28 12:23 | disposition left against medical advice (07) | DRG 281 ==
LOC: ER 00:44 → ERHOLD 03:17 → 2ND 16:58
PROVIDERS: ADMIT Hospitalist; ATTEND Hospitalist
PROC: B201YZZ Plain Radiography of Multiple Coronary Arteries using Other Contrast (ICD-10-PCS; principal; 2021-06-26)
PROC: 4A023N7 Measurement of Cardiac Sampling and Pressure, Left Heart, Percutaneous Approach (ICD-10-PCS; 2021-06-26)
PROC: B205YZZ Plain Radiography of Left Heart using Other Contrast (ICD-10-PCS; 2021-06-26)
DX: I21.4 Non-ST elevation (NSTEMI) myocardial infarction (principal); N17.9 Acute kidney failure, unspecified; I25.10 Atherosclerotic heart disease of native coronary artery without angina pectoris; I10 Essential (primary) hypertension; F41.9 Anxiety disorder, unspecified; Z20.822 Contact with and (suspected) exposure to COVID-19; Z95.5 Presence of coronary angioplasty implant and graft
CPT/HCPCS: 36415; 71045; 80048; 80053; 80061; 80076; 81003; 83735; 83880; 84439; 84443; 84484; 85025; 85610; 93005; 93306; 93454; 96372; 96374; 96375; 99285; C1893; J0360; J0583; J1644; J2250; J2270; J2405; J3010; J7030; J7040; U0003